=== PATIENT | male | born 1975 | race Caucasian/White ===

== ENCOUNTER 2021-12-12 08:07 | Day surgery (SDC) | payer BC, OTHER, SELFPAY ==
--- NOTE | 2021-12-07 12:09 | RAD REPORT ---
EXAM DESCRIPTION: RAD - Chest Pa And Lat (2 Views) - 12/07/2021 11:44 am CLINICAL HISTORY: Pre op pending cyst removal COMPARISON: ABDOMEN 1 VIEW KUB dated 03/06/2015 FINDINGS: Lines: None. Lungs: No evidence of edema or pneumonia. Pleural: No significant pleural effusions or pneumothorax. Cardiac: The heart size is within normal limits. Bones: No acute fractures. Other: IMPRESSION: No acute cardiopulmonary disease.
[2021-12-07 12:18] LABS: Absolute Lymphocytes (CBC) 2.4 K/uL (0.7-4.9); Hematocrit 44.9 % (39.6-49.0); Lymphocytes % 29.9 % (15.3-44.8); MPV 7.9 fL (7.6-11.3); RBC Red Blood Cell Count 4.95 M/uL (4.33-5.43)
[2021-12-07 12:30] LABS: Potassium 4.4 mmol/L (3.5-5.1)
--- NOTE | 2021-12-07 12:44 | EKG ---
Test Date: 2021-12-07 Test Time: 10:30:05 Die Baker: KASEY MEASUREMENT RESULTS: Intervals: Rate: 73 VT: 144 QRSD: 78 QT: 392 QTc: 431 Cochran: P: 29 VT: 144 QRS: 61 T: 48 INTERPRETIVE STATEMENTS: Normal sinus rhythm Normal ECG No previous ECG available for comparison Electronically Signed On 12-07-21 12:43:49 CDT by Tyler Webb
[2021-12-12] MEDS ORDERED: Ringers Lactate 1,000 ML IV ONE (08:14)
[2021-12-12] MEDS ORDERED: KETAMINE HCL 500 MG/5 ML VIAL ONE (08:22)
[2021-12-12] MEDS ORDERED: propofoL 200 MG/20 ML VIAL IV ONE (08:22)
[2021-12-12] MEDS ORDERED: FENTANYL CITR 100 MCG/2 ML ONE (08:22)
[2021-12-12] MEDS ORDERED: ONDANSETRON 4 MG/2 ML VIAL ONE ×2 (08:23→12:06)
[2021-12-12] MEDS ORDERED: dexAMETHasone 10 MG/ML VIAL ONE (08:23)
[2021-12-12] MEDS ORDERED: KETOROLAC 30 MG/ML INJ ONE (08:23)
[2021-12-12] MEDS ORDERED: LIDOCAINE 2% MPF 5 ML VIAL ONE (08:23)
[2021-12-12] MEDS ORDERED: MIDAZOLAM HCL 2 MG/2 ML INJ ONE (08:23)
[2021-12-12] MEDS ORDERED: ACETAMINOPHEN 500 MG TAB ONE (08:34)
[2021-12-12] MEDS ORDERED: CELECOXIB 100 MG CAPSULE ONE (08:35)
[2021-12-12] MEDS ORDERED: METHYLENE BLUE 0.5% 10 ML AMP ONE (08:43)
[2021-12-12] MEDS ORDERED: ROCURONIUM 50 MG/5 ML VIAL IV ONE (08:44)
[2021-12-12] MEDS ORDERED: CEFAZOLIN SODIUM 1 GM/VIAL ONE (09:38)
[2021-12-12] MEDS ORDERED: NA CHLORIDE 0.9% 50 ML ONE (09:38)
[2021-12-12] MEDS ORDERED: GLYCOPYRROLATE 0.2 MG/ML SYR ONE (10:31)
[2021-12-12] MEDS ORDERED: NEOSTIGMINE 1 MG/ML -5 ML ONE (10:32)
--- NOTE | 2021-12-12 10:40 | P.BOP ---
Preoperative diagnosis: infected pilonidal cyst Postoperative diagnosis: same Primary procedure: Excisional bx infected pilonidal cyst [id number] Estimated blood loss: <10cc Specimen: infected pilonidal cyst Findings: infected pilonidal cyst Anesthesia: General Complications: None Transferred to: Recovery Room Condition: Good
[2021-12-12 10:51] VITALS: O2SAT 100
[2021-12-12 11:02] VITALS: TEMP 97
--- NOTE | 2021-12-12 12:21 | OP ---
Date of Procedure: 12/12/2021 Surgeon: Biju Servin MD Preoperative Diagnosis: Infected pilonidal cyst. Postoperative Diagnosis: Infected pilonidal cyst. Procedure: Excisional biopsy of infected pilonidal cyst, 4 x 4 x 2 cm. Estimated Blood Loss: Less than 10 mL. Specimen: Infected pilonidal cyst. Finding: Infected pilonidal cyst. Anesthesia: General plus local. Complications: None. Indication: This is the case of a male, who comes to us with an on and off drainage of a anahi-wound, diagnosis with infected pilonidal cyst. The benefits, alternatives, and risks of excision fully exp lained, which include, but not limited to infection, bleeding, damage to adjacent structures, anesthe santi complication, nonhealing wound, MT and even . He also understands this may not relieve any symptoms. He might need more than one surgical intervention. He understands he may require wound ca re. He signed a consent. The area of concern was marked by me and the patient in the holding room. Procedure In Detail: The patient was brought to the operating room, placed in supine position. Anes thesia was done without complication. The patient was placed in prone position with proper protectio n. The anahi-sacral area was prepped and draped in the usual sterile fashion. Local anesthesia was a pplied. We have an opening in that area, so we placed an Angiocath. We got the needle through that area and applied some methylene blue through the catheter. This in order to once again found the cav ities and not to be multiple cysts. Once that catheter was removed, then we proceeded to delineate t he area, made a wedge incision of the skin and removed everything that we noted to be blue. This goe s all the way down to coccyx. The area was irrigated. Hemostasis was obtained. Since we have some pus over that area deep inside, I proceeded to leave this to close by secondary intention. We inject ed local anesthetic, irrigated the area, obtained hemostasis, and packed wet-to-dry dressing. The pa tient tolerated the procedure well. The patient was sent to recovery in stable condition. GAVINO/SAMARA Voice ID: [id number] Report ID: [id number]
[2021-12-12 12:31] VITALS: BP 128/76
--- NOTE | 2021-12-12 12:42 | DS ---
Diagnosis: Infected pilonidal cyst. Procedure: Excisional biopsy of infected pilonidal cyst. Disposition: Home. Activity: As tolerated. No heavy lifting. Plan: [facility] and we are going to change the dressings there. Medications: They will call previously. GAVINO/SAMARA Voice ID: [id number] Report ID: [id number]
== END 2021-12-12 12:40 | disposition home or self-care (01) ==
LOC: OR 08:07
PROVIDERS: ATTEND Surgery
PROC: 0JB90ZZ Excision of Buttock Subcutaneous Tissue and Fascia, Open Approach (ICD-10-PCS; principal; 2021-12-12 09:30)
DX: L05.91 Pilonidal cyst without abscess (principal); Z20.822 Contact with and (suspected) exposure to COVID-19
CPT/HCPCS: 93005; 87070; 85025; 80048; 36415; 87205; 88304; 71046; 11770; U0002; J2704; J2250; J3010; J1100; J2710; J7120; J2405 ×2; J0690